=== PATIENT | female | born 1935 | race Caucasian/White ===

== ENCOUNTER 2016-09-11 14:26 | Emergency (ER) | payer MEDICARE, BC ==
--- OUTSIDE RECORDS SUMMARY | 2016-09-11 14:54 | XMS REPORT | Continuity of Care Document ---
:1935 Author Organization [facility] ([facility]) Address [address] [place] [address] Phone [phone] Care Team Providers Name Role Phone Magaly Darden Primary Care Provider [phone] Source Comments This disclosure is being made pursuant to the Care Everywhere program, applicable federal and state laws, and may not contain all informaitonavailable regarding this patient.[facility] ([facility]) Active Allergies and Adverse Reactions No Known Allergies Current Medications Prescription Sig. Disp. Refills Start Date End Date Status omeprazole 20 mg Take 20 mg by mouth Active extended release daily. capsule cholecalciferol Take 1,000 Units by Active (VITAMIN D3) 1,000 mouth daily. unit tablet Calcium Carbonate 625 Take by mouth. Active mg Chew acetaminophen 325 mg Take 325 mg by mouth Active tablet every 4 hours as needed. simvastatin (ZOCOR) 10 Take 10 mg by mouth Active mg tablet every evening. lisinopril 40 mg Take 40 mg by mouth Active tablet daily. metoprolol succinate Take 200 mg by mouth Active 200 mg XL tablet daily. warfarin 5 mg tablet Take 1 Tab by mouth 30 Tab 6 04/08/2012 Active every evening. Indications: PULMONARY THROMBOEMBOLISM metFORMIN 1,000 mg Take 1,000 mg by Active tablet mouth 2 times daily with meals. venlafaxine 75 mg Take 75 mg by mouth Active tablet daily. Active Problems Problem Noted Date PE (pulmonary embolism) 04/06/2012 Diabetes mellitus 04/06/2012 Unspecified essential hypertension 04/06/2012 HLD (hyperlipidemia) 04/06/2012 Fracture of right humerus 04/06/2012 Social History Tobacco Use Types Packs/Day Years Used Date Former Smoker 0.25 30 Quit: 04/06/1984 Alcohol Use Drinks/Week oz/Week Comments No Last Filed Vital Signs Vital Sign Reading Time Taken Blood Pressure 156/98 04/06/2013 2:12 PM [employer] [facility] Pulse 90 04/06/2013 2:12 PM [employer] Temperature 36.6 C (97.9 F) 04/06/2013 2:12 PM [employer] Respiratory Rate 12 04/06/2013 2:12 PM [employer] Height 1.575 m (5' 2") 04/06/2012 3:49 PM [employer]ERIAL CH[employer] Weight 89.812 kg (198 lb) 04/06/2013 2:12 PM [employer] Body Mass Index 36.21 04/06/2013 2:12 PM [employer]ERIAL CH[employer]ER Oxygen Saturation 96% 04/06/2013 2:12 PM [employer] CH[employer]ER Plan of Care Health Maintenance Due Date Last Done Comments Hepatitis B Vaccine (1 of 3 - Primary Series) 1935 Tdap Vaccine 1946 DIABETIC: Cholesterol 1951 Diabetic: Hdl 1953 DIABETIC: Hemoglobin A1C 1951 Diabetic: Ldl 1953 DIABETIC: Microalbumin 1953 DIABETIC: Triglycerides 1953 Td Vaccine 1953 Colonoscopy 1983 Zoster Vaccine 1993 Osteoporosis Screening (DXA Bone Density) 1998 Pneumococcal Vaccine (1 of 2 - PCV13) 1998 DIABETIC: Foot Exam 04/29/2012 DIABETIC: Retinal Eye Exam 04/29/2012 Influenza Vaccine: Seasonal (#1) 01/02/2016 Results from Last 3 Months Not on file
--- NOTE | 2016-09-11 15:30 | ERNOTE ---
Trauma/Assault HPI - Narrative Date of Service: 09/11/16 - General Stated Complaint: FALL Time Seen by Provider: 09/11/16 14:48 Source: patient Exam Limitations: no limitations - Immun/Allergies/Home Medications Immunizations: IMMUNIZATION HX Immunizations Up to Date Yes History of Influenza Vaccine Yes Hx Pneumococcal Vaccination No Allergies/Adverse Reactions: Allergies No Known Allergies Allergy (Verified 11/12/15 13:31) Home Medications: HOME MEDICATIONS Acetaminophen [Tylenol] 325 mg PO PRN PRN 04/06/12 [Last Taken Unknown] Aspirin [Aspir 81] 81 mg PO DAILY 04/06/12 [Last Taken Unknown] Calcium Carbonate [Calcium] 600 mg PO BID 04/06/12 [Last Taken 04/06/12 06:00] Cholecalciferol (Vitamin D3) [Vitamin D] 1,000 unit PO DAILY 04/06/12 [Last Taken 04/06/12 06:00] Lisinopril [Zestril] 40 mg PO DAILY 04/06/12 [Last Taken 04/06/12 06:00] Metformin HCl 500 mg PO BID 04/06/12 [Last Taken 04/06/12 06:00] Metoprolol Succinate [Toprol Xl] 200 mg PO DAILY 04/06/12 [Last Taken 04/06/12 06:00] Omeprazole [Prilosec Generic] 20 mg PO DAILY 04/06/12 [Last Taken 04/06/12 06:00 ] Simvastatin [Zocor] 20 mg PO HS 04/06/12 [Last Taken Unknown] Glimepiride [Amaryl] 4 mg PO DAILY 11/12/15 [Last Taken Unknown] Venlafaxine HCl 75 mg PO DAILY 11/12/15 [Last Taken Unknown] Cyclobenzaprine HCl [Flexeril] 10 mg PO TID PRN 09/11/16 [Last Taken Unknown] HYDROcodone/ACETAMINOPHEN [Hydrocodon-Acetaminophen 5-325] 1 each PO Q6H PRN 04/19 [Last Taken 09/11/16 13:30] - History of Present Illness Narrative: Pt. comes in with c/o L rib pain that occurred just prior to arrival due to falling down the stairs. Pt. was given fentanyl just prior to arrival and states that it alleviated the pain some but not completely and movement and breathing exacerbates the pain. Pt. took a hydrocodone and flexeril 1 hour prior to fall. Method of Injury: Reports: fall Review of Systems - Review of Systems Constitutional: Present: no symptoms reported. Absent: recent illness, fever, chills, malaise EYE: Present: no symptoms reported ENT: Present: no symptoms reported Respiratory: Present: no symptoms reported. Absent: shortness of breath, cough , wheezing Cardiology: Present: chest pain - L rib pain anterior and post. Absent: palpitations, syncope, edema Gastrointestinal/Abdominal: Present: no symptoms reported. Absent: nausea, vomiting, diarrhea Genitourinary: Present: no symptoms reported Musculoskeletal: Present: back pain - L lateral Skin: Present: no symptoms reported Neurological: Present: no symptoms reported. Absent: seizure, weakness, numbness All Other Systems: All systems neg except as marked - Patient's Past Medical History Patient History - Medical: Diabetes Type 2, Depression, GERD Patient History - Cardiac/Respiratory: Hypertension, Hyperlipidemia Patient History - Cancer: No Hx of Cancer Patient History - Surgical Procedures: Cholecystectomy, Colonoscopy, Hysterectomy Patient History - Other: None LMP (females 10-50): Menopausal - Social History Living Situations: home Abuse History: No History of abuse Psych History: No pertinent hx Smoking Status: Never smoker Alcohol Use: none Drug Use: none - Immunizations Immunizations Up to Date: Yes Hx Pneumococcal Vaccination: No History of Influenza Vaccine: Yes Physical Exam - Physical Exam General Appearance: Present: wd/wn, alert, no apparent distress Eye Exam: Normal inspection: bilateral, PERRL: bilateral, EOMI: bilateral Ears, Nose, Throat: Present: normal ENT inspection, normal pharynx Neck: Present: normal inspection, nontender. Absent: lymphadenopathy (R), lymphadenopathy (L) Respiratory: Present: no respiratory distress, normal breath sounds, no accessory muscle use, lungs clear, chest tenderness - L rib pain ant and post Cardiovascular/Chest: Present: regular rate, rhythm, no murmur, normal peripheral pulses Gastrointestinal/Abdominal: Present: normal bowel sounds, nontender, nondistended, soft, no organomegaly Back Exam: Present: normal range of motion - with pain, no vertebral tenderness , other - post rib pain ribs 3-7. Absent: muscle spasm Extremity Exam: Present: normal inspection, non-tender, normal range of motion, no edema Neurological Exam: Present: alert, oriented, normal mood/affect, no motor/ sensory deficits Skin Exam: Present: normal color, warm/dry. Absent: pallor, skin rash ED Progress - Date and Time Seen: Date and Time: 09/11/16 15:[address] Carvajal and he recommends transfer to [facility] for trauma assessment and thoracic epidural. 09/11/16 16:[address] Frederick and [facility] and he accepts transfer without any further recommendations. - Results and Orders Patient's Lab Results:: I have reviewed the patient's lab results. - Vital Signs Patient's Vital Signs:: I have reviewed the patient's vital signs. Vital Signs: Vital Signs 09/11/16 14:29 Temperature 36.9 C Pulse Rate 98 Respiratory 17 Rate Blood Pressure 124/66 O2 Sat by Pulse 98 Oximetry - X-Ray X-Ray #1 X-Ray: chest Interpretation: Reviewed by me X-ray Comments: multiple rib fractures mildly displaced 3-10 with tiny pneumothorax and extensive subcutaneous emphasema X-Ray #2 X-Ray: ribs Interpretation: Reviewed by me X-ray Comments: multiple rib fractures mildly displaced 3-10 with tiny pneumothorax and extensive subcutaneous emphasema - Progress/Reassessment Chief Complaint: Fall Progress:: Unchanged Departure Clinical Impression: Ribs, multiple fractures Qualifiers: Encounter type: initial encounter Fracture type: closed Laterality: left Qualified Code(s): S22.42XA - Multiple fractures of ribs, left side, initial encounter for closed fracture Subcutaneous emphysema due to trauma Qualifiers: Encounter type: initial encounter Qualified Code(s): T79.7XXA - Traumatic subcutaneous emphysema, initial encounter - Departure Disposition: [facility] Condition: Critical Referrals: Kelly Guzman MD [Primary Care Provider] -
[2016-09-11] MEDS ORDERED: fentaNYL CITRATE/PF 50 MCG/ML AMPUL IV ONE (15:47)
[2016-09-11] MEDS ORDERED: fentaNYL CITRATE/PF 50 MCG/ML AMPUL ONE (15:48)
[2016-09-11 16:06] LABS: Hematocrit 35.8 % (37.0-47.0); Hemoglobin 11.8 gm/dL (12.5-16.0); Mean Cell Volume 90.4 fl (78-100); Mean Corpuscular Hemoglobin 29.8 pg (27-31); Mean Platelet Volume 9.3 fl (6.0-9.5); Neutrophil # 11.3 K/mm3 (1.3-6.0); Neutrophil % 79.6 % (42-75.0); Platelet Count 331 K/mm3 (150-450); Red Blood Count 3.96 M/mm3 (4.2-5.4); Red Cell Distribution Width 13.3 % (11.5-14.0); White Blood Count 14.2 K/mm3 (4.0-10.5)
[2016-09-11 16:20] LABS: Albumin * 3.2 gm/dl (3.4-5.0); Anion Gap 15.6 mmol/L (6.8-13.8); BUN/Creatinine Ratio 16.8 (9.0-21.6); Bilirubin, Total 0.3 mg/dL (0.0-1.1); Calcium * 8.7 mg/dL (7.9-10.9); Potassium 3.6 mmol/L (3.4-4.6); Total Protein 6.3 gm/dL (6.2-8.2)
[2016-09-11 16:55] VITALS: BP 126/59
== END 2016-09-11 17:07 | disposition short-term general hospital (02) ==
LOC: ER 14:26
DX: S22.42XA Multiple fractures of ribs, left side, initial encounter for closed fracture (principal); T79.7XXA Traumatic subcutaneous emphysema, initial encounter; E11.9 Type 2 diabetes mellitus without complications; I10 Essential (primary) hypertension; F32.89 Other specified depressive episodes; E78.5 Hyperlipidemia, unspecified; K21.9 Gastro-esophageal reflux disease without esophagitis

== ENCOUNTER 2017-01-21 12:06 | Emergency (ER) | payer MEDICARE, BC ==
[2017-01-21] MEDS ORDERED: METOPROLOL TARTRATE 1 MG/ML AMPUL IV ONE ×2 (13:12→13:19)
[2017-01-21 13:25] LABS: Hematocrit 39.4 % (37.0-47.0); Hemoglobin 13.2 gm/dL (12.5-16.0); Mean Corpuscular Hemoglobin 28.8 pg (27-31); Mean Corpuscular Hgb Conc 33.5 g/dl (32-36); Mean Platelet Volume 9.4 fl (6.0-9.5); Neutrophil # 4.4 K/mm3 (1.3-6.0); Neutrophil % 63.4 % (42-75.0); Platelet Count 317 K/mm3 (150-450); Red Blood Count 4.58 M/mm3 (4.2-5.4); Red Cell Distribution Width 14.5 % (11.5-14.0)
[2017-01-21 13:43] LABS: Troponin I Less than 0.017 ng/ml (0.00-0.10)
[2017-01-21 13:46] LABS: ALT 19 U/L (19-67); AST 12 U/L (0-48); Albumin * 3.6 gm/dl (3.4-5.0); Alkaline Phosphatase * 117 U/L (50-170); Anion Gap 15.7 mmol/L (6.8-13.8); BUN/Creatinine Ratio 13.2 (9.0-21.6); Bilirubin, Total 0.6 mg/dL (0.0-1.1); Blood Urea Nitrogen 10 mg/dL (3-23); Ca. Corrected For Albumin 9.4 mg/dL (8.4-10.2); Calcium * 9.4 mg/dL (7.9-10.9); Carbon Dioxide 27.2 mmol/L (24-32.6); Chloride 104 mmol/L (97-106); Glucose * 122 mg/dL (70-110); Potassium 3.9 mmol/L (3.4-4.6); Sodium 143 mmol/L (132-142); TSH * 1.427 uIU/mL (0.358-3.74); Total Protein 6.9 gm/dL (6.2-8.2)
[2017-01-21 14:00] LABS: Urine Bilirubin Negative (NEGATIVE); Urine Blood Negative /ul (NEGATIVE); Urine Ketone Negative (NEGATIVE); Urine Nitrite Negative (NEGATIVE); Urine Protein Negative (NEGATIVE); Urine Urobilinogen Normal (NORMAL)
[2017-01-21 14:10] LABS: Urine Appearance Clear; Urine Bacteria 1+; Urine Color Yellow; Urine RBC None Seen /hpf (0-5); Urine WBC 0-5 /hpf (0-5)
--- NOTE | 2017-01-21 16:04 | OR ---
Anesthesia Procedure Note - Anesthesia Procedure Note Narrative: Vital Signs - Last Taken Temp 36.2 C L 01/21/17 12:30 Pulse 117 H 01/21/17 16:00 Resp 19 01/21/17 16:00 BP 146/71 01/21/17 16:00 Pulse Ox 96 01/21/17 16:00 O2 Oxygen Delivery Method Room Air 01/21/17 16:02 ANESTHESIA PROCEDURE NOTE Date of procedure: 01/21/2017. Time of procedure: 1550. Performed by: Mervin Gardner CRNA Import Clerk: None . Preprocedure diagnosis: Difficult IV access. Post procedure diagnosis: Same. Procedure: IV start Indications: Difficult IV access. Findings: 18-gauge Angiocath started in patient's right hand. EBL: Minimal. Fluids: N/A. Specimen: N/A. Post procedure condition: The patient tolerated the procedure well. No complications were noted. Thank you for this consultation Mervin Gardner CRNA
--- NOTE | 2017-01-21 16:51 | ERNOTE ---
Medical Problem HPI - Narrative Date of Service: 01/21/17 - General Chief Complaint: Palpitations Time Seen by Provider: 01/21/17 12:54 Source: patient Exam Limitations: no limitations - Immun/Allergies/Home Medications Immunizations: IMMUNIZATION HX Immunizations Up to Date Yes History of Influenza Vaccine Yes Hx Pneumococcal Vaccination Yes Allergies/Adverse Reactions: Allergies No Known Allergies Allergy (Verified 01/21/17 12:51) Home Medications: HOME MEDICATIONS Acetaminophen [Tylenol] 325 mg PO PRN PRN 04/06/12 [Last Taken Unknown] Aspirin [Aspir 81] 81 mg PO DAILY 04/06/12 [Last Taken Unknown] Calcium Carbonate [Calcium] 600 mg PO BID 04/06/12 [Last Taken 04/06/12 06:00] Cholecalciferol (Vitamin D3) [Vitamin D] 1,000 unit PO DAILY 04/06/12 [Last Taken 04/06/12 06:00] Lisinopril [Zestril] 40 mg PO DAILY 04/06/12 [Last Taken 04/06/12 06:00] Metformin HCl 500 mg PO BID 04/06/12 [Last Taken 04/06/12 06:00] Metoprolol Succinate [Toprol Xl] 200 mg PO DAILY 04/06/12 [Last Taken 04/06/12 06:00] Omeprazole [Prilosec Generic] 20 mg PO DAILY 04/06/12 [Last Taken 04/06/12 06:00 ] Simvastatin [Zocor] 20 mg PO HS 04/06/12 [Last Taken Unknown] Glimepiride [Amaryl] 4 mg PO DAILY 11/12/15 [Last Taken Unknown] Venlafaxine HCl 75 mg PO DAILY 11/12/15 [Last Taken Unknown] Cyclobenzaprine HCl [Flexeril] 10 mg PO TID PRN 09/11/16 [Last Taken Unknown] HYDROcodone/ACETAMINOPHEN [Hydrocodon-Acetaminophen 5-325] 1 each PO Q6H PRN 04/19 [Last Taken 09/11/16 13:30] - History of Present History Narrative: patient presents to the ED for feeling fatigued for several weeks. She relates no acute Sx, but for the last several weeks has felt fatigue, somewhat SOB at times and having palpitations. She has taken her BP several times and her HR and BP have been high off and on for several weeks. No CP. Right noww no SOB. No calf pain or leg swelling. No abdominal pain. Still eating and drinking well. No fever or cough. She has not seen anyone else for this. Timing: intermittent Severity: mild Modifying Factors - (Improves): Present: other - nothing Modifying Factors - (Worsens): Present: other - nothign Review of Systems - Review of Systems Constitutional: Absent: fever Respiratory: Present: See HPI Cardiology: Absent: chest pain Gastrointestinal/Abdominal: Absent: abdominal pain Genitourinary: Absent: dysuria All Other Systems: All systems neg except as marked - Patient's Past Medical History Patient History - Medical: Diabetes Type 2, Depression, GERD Patient History - Cardiac/Respiratory: Hypertension, Hyperlipidemia Patient History - Cancer: No Hx of Cancer Patient History - Surgical Procedures: Cholecystectomy, Colonoscopy, Hysterectomy Patient History - Other: None LMP (females 10-50): post menop - Social History Living Situations: home Abuse History: No History of abuse Psych History: No pertinent hx Smoking Status: Never smoker Alcohol Use: none Drug Use: none - Immunizations Immunizations Up to Date: Yes Hx Pneumococcal Vaccination: Yes History of Influenza Vaccine: Yes Physical Exam - Physical Exam General Appearance: Present: alert, no apparent distress, other - non-toxic, no distress, pleasant. Head Exam: Present: normal inspection, no evidence of injury Eye Exam: Normal inspection: bilateral, PERRL: bilateral Ears, Nose, Throat: Present: normal ENT inspection Neck: Present: normal inspection Respiratory: Present: no respiratory distress, normal breath sounds, no accessory muscle use, chest nontender, lungs clear Cardiovascular/Chest: Present: normal peripheral pulses, tachycardia Gastrointestinal/Abdominal: Present: normal bowel sounds, nontender, nondistended, soft. Absent: tenderness Back Exam: Present: normal inspection. 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 Absent: motor weakness Skin Exam: Present: normal color, warm/dry ED Progress - Results and Orders Patient's Lab Results:: I have reviewed the patient's lab results. - Vital Signs Patient's Vital Signs:: I have reviewed the patient's vital signs. Vital Signs: Vital Signs 01/21/17 01/21/17 01/21/17 12:25 12:30 13:10 Temperature 36.2 C L Pulse Rate 136 H 133 H Respiratory 18 21 H Rate Blood Pressure 158/98 158/98 142/76 O2 Sat by Pulse 94 95 Oximetry 01/21/17 01/21/17 01/21/17 13:44 13:46 13:51 Temperature Pulse Rate 134 H 134 H 105 H Respiratory 19 12 Rate Blood Pressure 118/76 142/76 115/45 O2 Sat by Pulse 94 93 Oximetry 01/21/17 01/21/17 01/21/17 14:10 14:47 16:00 Temperature Pulse Rate 106 H 109 H 117 H Respiratory 19 17 19 Rate Blood Pressure 132/76 137/76 146/71 O2 Sat by Pulse 93 95 96 Oximetry - EKG EKG read: Interp. by me EKG Comments: Sinus tachycardia, rate 134. Non-specific changes, no STEMI. - X-Ray X-Ray #1 X-Ray: chest Interpretation: Interp. by me X-ray Comments: I reviewed official radiology report - CT/Ultrasound CT/Ultrasound Narrative: CT chest, negative. I reviwed official report - Progress/Reassessment Chief Complaint: Palpitations Progress Note-Subjective: 01/21/17 16:49 Patient has decreased HR. No evidence of ACS, PE, aortic dissection, pneumonia , ,thyroid abnormality or other clear acute life threat. Patient offered observation, wishes to go home, understands risks and benefits. Has appointment tomorrow with Dr Guzman. No clear acute life threat found. I disucssed warning signs and reasons to return as well as the need for close f/u. Departure - Departure Clinical Impression: Fatigue Disposition: Home self-care Condition: Stable Additional Instructions: Rest. Follow-up with Dr Guzman at 2pm tomorrow for a re-check. Return here if you change your mind about observation, develop chest pain, trouble breathing , high heart rate or if your condition worsens or changes in any way.
[2017-01-21 17:43] VITALS: BP 142/76
== END 2017-01-21 16:50 | disposition home or self-care (01) ==
LOC: ER 12:06
DX: R53.83 Other fatigue (principal)